=== PATIENT | female | born 2000 | race Caucasian/White ===

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

== ENCOUNTER 2021-10-25 13:02 | Emergency (ER) | payer BC ==
[~2021-10-25] VITALS: Ht 152.4 cm; Wt 65.8 kg
[~2021-10-25 13:02] MED LIST changes: +OMEPRAZOLE10 MG PO
[2021-10-25 13:22] VITALS: BP 120/81
[2021-10-25 13:49] LABS: BILIRUBIN Negative (Negative); BLOOD 3+ (Negative); CLARITY Clear (Clear); COLOR Yellow (Yellow); GLUCOSE Negative (Negative); KETONE Negative (Negative); LEUKO ESTERASE 2+ (Negative); NITRITE Negative (Negative); PH 6.5 (4.5-8.0); SPECIFIC GRAVITY <= 1.005 (1.001-1.030); UROBILINOGEN 0.2 E.U./dl (0.0-1.0)
[2021-10-25 14:03] LABS: BASO % 0.2 % (0.0-1.0); EOS # 0.1 10*3/uL (0.0-0.4); EOS % 0.8 % (1.0-4.0); HEMATOCRIT 41.5 % (37.0-47.0); LYMPH # 1.7 10*3/uL (1.3-4.4); LYMPH % 19.3 % (27.0-41.0); MEAN CELL VOLUME 84.2 fl (81.0-99.0); MEAN CORPUSCULAR HGB 29.2 pg (27.0-31.0); MEAN CORPUSCULAR HGB CONC 34.7 g/dl (33.0-37.0); MEAN PLATELET VOLUME 10.2 fl (9.6-12.3); MONO # 0.4 10*3/uL (0.1-1.0); NEUT # 6.4 10*3/uL (2.3-7.9); NEUT % 74.2 % (47.0-73.0); PLATELET COUNT AUTOMATED 192 10*3/uL (130-400); RED BLOOD COUNT 4.93 10*6/uL (4.10-5.10); RED CELL DISTRI WIDTH 12.9 % (0-14.5); WHITE BLOOD COUNT 8.6 10*3/uL (4.8-10.8)
[2021-10-25 14:13] LABS: BACTERIA 1+; EPITHELIAL CELLS TNTC
[2021-10-25 14:19] LABS: ALBUMIN 3.8 gm/dl (3.1-4.5); ALKALINE PHOSPHATASE 67 U/L (45-117); BUN 5 mg/dl (7-24); CHLORIDE 109 mmol/L (98-107); CREATININE 0.55 mg/dL (0.55-1.02); POTASSIUM 3.7 mmol/L (3.5-5.1); SGOT/AST 10 IU/L (3-35); SGPT/ALT 22 U/L (12-78); SODIUM 140 mmol/L (136-145)
[2021-10-25] MEDS ORDERED: CEFUROXIME AXE500 MG PO (15:22)
== END 2021-10-25 15:28 | disposition home or self-care (01) ==
LOC: ED 13:02
PROVIDERS: Physician Assistant
DX: O20.0 Threatened abortion (principal); O23.91 Unspecified genitourinary tract infection in pregnancy, first trimester; Z3A.12 12 weeks gestation of pregnancy; Z88.0 Allergy status to penicillin; Z88.1 Allergy status to other antibiotic agents; Z88.8 Allergy status to other drugs, medicaments and biological substances; Z79.899 Other long term (current) drug therapy

== ENCOUNTER 2023-01-05 15:49 | Emergency (ER) | payer MEDICAID ==
[~2023-01-05] VITALS: Ht 152.4 cm; Wt 68.0 kg
[~2023-01-05 15:49] MED LIST changes: +CEFUROXIME AXE500 MG PO
[2023-01-05 16:03] VITALS: BP 118/65
[2023-01-05] MEDS ORDERED: ERYTHROMYCIN OPH1 GM OPH (17:46)
== END 2023-01-05 17:52 | disposition home or self-care (01) ==
LOC: ED 15:49
DX: S05.8X2A Other injuries of left eye and orbit, initial encounter (principal); Z88.0 Allergy status to penicillin; Z88.1 Allergy status to other antibiotic agents; Z88.2 Allergy status to sulfonamides; Z88.8 Allergy status to other drugs, medicaments and biological substances; Z98.890 Other specified postprocedural states; Z87.891 Personal history of nicotine dependence; X58.XXXA Exposure to other specified factors, initial encounter; Y93.89 Activity, other specified; Y92.89 Other specified places as the place of occurrence of the external cause; Y99.8 Other external cause status

== ENCOUNTER 2023-07-09 22:02 | Emergency (ER) | payer OTHER ==
[~2023-07-09] VITALS: Ht 152.4 cm; Wt 77.1 kg
[~2023-07-09 22:02] MED LIST changes: +ERYTHROMYCIN OPH1 GM OPH
[2023-07-09 22:17] VITALS: BP 136/62
== END 2023-07-10 00:11 | disposition home or self-care (01) ==
LOC: ED 22:02
DX: O26.892 Other specified pregnancy related conditions, second trimester (principal); S93.402A Sprain of unspecified ligament of left ankle, initial encounter; Z3A.24 24 weeks gestation of pregnancy; Z88.0 Allergy status to penicillin; Z88.1 Allergy status to other antibiotic agents; Z88.2 Allergy status to sulfonamides; Z88.8 Allergy status to other drugs, medicaments and biological substances; Z98.890 Other specified postprocedural states; X58.XXXA Exposure to other specified factors, initial encounter; Y93.89 Activity, other specified; Y92.89 Other specified places as the place of occurrence of the external cause; Y99.8 Other external cause status